=== PATIENT | male | born 1970 | race Caucasian/White ===

== ENCOUNTER 2016-10-12 12:29 | Emergency (ER) | payer OTHER ==
[2016-10-12 12:34] VITALS: BP 128/82
[2016-10-12] MEDS ORDERED: Methocarbamol TAB* 500 MG PO ONE (13:20)
[2016-10-12] MEDS ORDERED: Ketorolac INJ* 60 MG/2 ML VIAL IM ONE (13:20)
[2016-10-12] MEDS ORDERED: oxyCODONE/Acetamin 5/325 MG* TAB PO ONE (13:21)
--- NOTE | 2016-10-12 13:29 | ED ---
Back Pain - HPI Summary HPI Summary: 45M presents with back pain for 2 days that is acute on chronic. States nothing different about this back pain except for that is reoccurred. His back pain is not midline is located on his right side and the pain goes into his leg. He denies any numbness or tingling or weakness. He has had imaging for his back in the past and has shown to have a herniated disk. He denies any fever, loss of bowel or bladder or saddle anaesthesia. - History of Current Complaint Chief Complaint: EDBackInjuryPain Stated Complaint: BACK PAIN Time Seen by Provider: 10/12/16 12:53 Pain Intensity: 8 - Allergies/Home Medications Allergies/Adverse Reactions: Allergies Allergy/AdvReac Type Severity Reaction Status Date / Time No Known Allergies Allergy Verified 05/25/16 08:27 PMH/Surg Hx/FS Hx/Imm Hx Endocrine/Hematology History: Denies: Hx Anticoagulant Therapy Respiratory History: Reports: Hx Asthma - YRS AGO Musculoskeletal History: Reports: Hx Back Problems Sensory History: Reports: Hx Contacts or Glasses Opthamlomology History: Reports: Hx Contacts or Glasses - Immunization History Date of Tetanus Vaccine: unknown Date of Influenza Vaccine: no Infectious Disease History: No Infectious Disease History: Denies: Traveled Outside the [place] in Last 30 Days - Family History Known Family History: Positive: Cardiac Disease - Social History Alcohol Use: Occasionally Hx Substance Use: No Substance Use Type: Reports: None Smoking Status (MU): Heavy Every Day Tobacco Smoker Type: Cigarettes Amount Used/How Often: 1 pack/day Length of Time of Smoking/Using Tobacco: 30 years Have You Smoked in the Last Year: Yes Review of Systems Negative: Fever Negative: Chest Pain Negative: Shortness Of Breath Positive: Myalgia - back pain All Other Systems Reviewed And Are Negative: Yes Physical Exam Triage Information Reviewed: Yes Vital Signs On Initial Exam: Initial Vitals Temp Pulse Resp BP Pulse Ox 98.1 F 85 20 128/82 99 10/12/16 12:31 10/12/16 12:31 10/12/16 12:31 10/12/16 12:31 10/12/16 12:31 Vital Signs Reviewed: Yes Appearance: Positive: Well-Appearing Skin: Positive: Warm, Dry Head/Face: Positive: Normal Head/Face Inspection Eyes: Positive: Normal, Conjunctiva Clear ENT: Positive: Normal ENT inspection, Pharynx normal, TMs normal Respiratory/Lung Sounds: Positive: Clear to Auscultation, Breath Sounds Present Cardiovascular: Positive: Normal, RRR Musculoskeletal: Positive: Limited @ - back due to pain, Other - neg SLR, no midline tenderness, tenderness over right side of back Neurological: Positive: Reflexes Intact - patella Diagnostics - Vital Signs Vital Signs Temp Pulse Resp BP Pulse Ox 10/12/16 12:31 98.1 F 85 20 128/82 99 - Laboratory Lab Statement: Any lab studies that have been ordered have been reviewed, and results considered in the medical decision making process. Back Pain Course/Dx - Course Course Of Treatment: 45M presents with acute on chronic back pain on right side. no numbness or tingling. no midline tenderness on exam, neg SLR, will treat with medrol pack and muscle relaxer. patient understands and agrees with plan - Diagnoses Differential Diagnosis/HQI/PQRI: Positive: Herniated Disc, Strain, Sprain Provider Diagnoses: Back pain Discharge - Discharge Plan Condition: Good Disposition: HOME Prescriptions: Cyclobenzaprine TAB* [Flexeril TAB*] 10 mg PO TID PRN #8 tab PRN Reason: Pain Methylprednisolone [Medrol Dosepak 4 MG*] 4 mg PO .SEE BEAR INSTRUCTION #1 packet Patient Education Materials: Back Pain (ED) Forms: *Work Release Referrals: Kiley Bermudez MD [Primary Care Provider] - Additional Instructions: Follow directions on package for Medrol pack Take muscle relaxers three times a day for 3 days, first dose given in ED Use ibuprofen or Tylenol for pain every 6 hours Follow up with primary within 5 days Return to ED if unable to ambulate or develop any new or worsening symptoms
== END 2016-10-12 14:19 | disposition home or self-care (01) ==
LOC: ED 12:29
DX: M54.9 Dorsalgia, unspecified (principal); F17.210 Nicotine dependence, cigarettes, uncomplicated
CPT/HCPCS: 96372; 99282; A9270-GY; J1885

== ENCOUNTER 2016-11-27 16:23 | Emergency (ER) | payer OTHER ==
[2016-11-27] MEDS ORDERED: NS 0.9% 1000 ML* 1,000 ML IV ONE (16:46)
[2016-11-27 17:08] LABS: Hematocrit 41 % (42-52); Hemoglobin 14.2 g/dl (14.0-18.0); Mean Corpuscular HGB Conc 34 g/dl (31-36); Mean Corpuscular Hemoglobin 32 pg (27-31); Mean Corpuscular Volume 92 fL (80-94); Mean Platelet Volume 9 um3 (7.4-10.4); Red Cell Distribution Width 13 % (10.5-15); White Blood Count 8.5 10^3/ul (3.5-10.8)
[2016-11-27 17:22] LABS: BUN/Creatinine Ratio 9.2 (8-20); Calcium 8.7 mg/dL (8.6-10.3); EGFR African American 141.4 (>60); EGFR Non-African American 109.9 (>60); Globulin 2.6 g/dL (2-4); Potassium 3.5 mmol/L (3.5-5.0); Total Bilirubin 0.5 mg/dL (0.2-1.0); Total Protein 6.6 g/dL (6.4-8.9)
--- NOTE | 2016-11-27 17:35 | RAD ---
Indication: Fall, head injury. CT of the brain was performed without IV contrast. Comparison is made with previous exam dated October 22, 2015. Ventricular structures are midline. No midline shift is noted. The extra-axial spaces are unremarkable. There is no evidence of intracranial mass or hemorrhage. No other high or low density lesions are identified. The bony calvaria is otherwise unremarkable. Mastoid air cells are unremarkable. Fluid is loculated air is noted in the oral pharynx. IMPRESSION: No intracranial mass or hemorrhage is identified.
--- NOTE | 2016-11-27 17:37 | RAD ---
Indication: Neck injury after fall. CT of the cervical spine was obtained in the axial plane. Sagittal and coronal reconstructed images were obtained. Mastoid air cells are well aerated. No fracture is noted. The C1 ring is intact. No fracture is identified. The vertebral bodies appear normal in height. Degenerative changes of the atlantoaxial joint is noted. At C2-C3 and C3-C4 there is no disc protrusion. No central foraminal stenosis is noted. At C4-C5 spondylitic ridge flattens the thecal sac. No central foraminal stenosis is noted. At C5-C6 no fractures identified. Minimal broad-based protrusion flattens the thecal sac. No central foraminal stenosis is noted. At C6-C7 spondylitic ridge, left uncovertebral joint hypertrophy left facet arthropathy results in left foraminal stenosis. At C7-T1 disc space is normal. No fractures identified. Emphysematous changes of the lung corona are noted. Large emphysematous bullae is noted in the right apex. IMPRESSION: MULTILEVEL DEGENERATIVE DISC DISEASE AT C5-C6 AND C6-C7. NO FRACTURE IS IDENTIFIED.
--- NOTE | 2016-11-27 17:43 | RAD ---
Indication: Fall, facial injury. CT of the facial bones was obtained in the axial plane. Sagittal and coronal reconstructed images were obtained. There appears to be comminuted fracture of the right NaSal arch and left nasal arch. No significant displacement is noted however. There is likely hemorrhage with flocculent fluid noted in the nasopharynx. There is mucosal thickening of the maxillary sinuses with obstruction of the ostiomeatal units. Mucosal thickening of the middle and inferior nasal turbinates are noted. There is opacification of the ethmoid air cells. The sphenoid sinuses are unremarkable. The frontal sinuses are otherwise unremarkable. The orbits are otherwise intact. The mandible demonstrates no fracture. Zygomatic arch demonstrates no fracture. The orbits show no fracture. IMPRESSION: Comminuted fracture of both the left and right nasal arch. There is mucosal thickening and fluid in the nasopharynx with flocculent amount of air. Maxillary sinuses are otherwise unremarkable.
[2016-11-27 18:05] LABS: Urine Bacteria Absent (Absent); Urine Bilirubin Negative (Negative); Urine Glucose Negative (Negative); Urine Nitrite Negative (Negative)
[2016-11-27] MEDS ORDERED: Cephalexin SUSP* 250 MG/5 ML ORAL.SUSP 100 ML BTL PO ONE (18:32)
--- NOTE | 2016-11-27 18:55 | RAD ---
Indication: Back pain. 2 views of the lumbar spine are reviewed. The vertebral bodies appear normal in height. Disc space narrowing at L3-L4 with mild ventral osteophyte formation is noted. No fracture is noted. IMPRESSION: Mild degenerative disc disease at L3-L4.
--- NOTE | 2016-11-27 18:55 | RAD ---
Indication: Back pain. 2 views of the thoracic spine are reviewed. The vertebral bodies appear normal in height. No fracture is noted. Minimal areas of disc space narrowing with mild osteophyte formation is noted at multiple levels. IMPRESSION: Mild degenerative disc disease without fracture.
[2016-11-27] MEDS ORDERED: Cephalexin CAP* 250 MG ONE (19:18)
[2016-11-27] MEDS ORDERED: Cephalexin CAP* 250 MG PO ONE (19:20)
[2016-11-28 08:23] VITALS: BP 107/75
--- NOTE | 2016-11-28 08:50 | ED ---
Karl Higginbotham Matthew, scribed for Mario Pradhan MD on 11/27/16 at 1644 . Adult Trauma - HPI Summary HPI Summary: A 46 y/o male presents to the ED after falling from a standing position. The pain is rated 8/10 in severity. He states that he tripped while walking onto the side walk. Associated symptoms include lower back pain, cervical spine pain , epistaxis, and an abrasion to the nose. An empty vodka bottle was found beside the patient according to EMS. - History of Current Complaint Chief Complaint: EDGeneral Stated Complaint: FALL/ETOH Time Seen by Provider: 11/27/16 16:42 Hx Obtained From: Patient Mechanism of Injury: Fall - from standing Ambulatory at the Scene: Yes Onset/Duration: Started Minutes Ago, Traumatic, Still Present Onset of Pain: Immediate Onset Severity: Moderate Current Severity: Moderate Pain Intensity: 8 Pain Scale Used: 0-10 Numeric Location: Head, Neck, Back Aggravating Factor(s): Movement Associated Signs & Symptoms: Positive: Other: - neck pain, back pain, abrasion to the nose, and epistaxis - Allergy/Home Medications Allergies/Adverse Reactions: Allergies Allergy/AdvReac Type Severity Reaction Status Date / Time No Known Allergies Allergy Verified 05/25/16 08:27 PMH/Surg Hx/FS Hx/Imm Hx Endocrine/Hematology History: Denies: Hx Anticoagulant Therapy Respiratory History: Reports: Hx Asthma - YRS AGO Musculoskeletal History: Reports: Hx Back Problems Sensory History: Reports: Hx Contacts or Glasses Opthamlomology History: Reports: Hx Contacts or Glasses - Immunization History Date of Tetanus Vaccine: unknown Date of Influenza Vaccine: no Infectious Disease History: Denies: Traveled Outside the [place] in Last 30 Days - Family History Known Family History: Positive: Cardiac Disease - Social History Alcohol Use: Occasionally Hx Substance Use: No Substance Use Type: Reports: None Smoking Status (MU): Heavy Every Day Tobacco Smoker Type: Cigarettes Amount Used/How Often: 1 pack/day Length of Time of Smoking/Using Tobacco: 30 years Have You Smoked in the Last Year: Yes Review of Systems Constitutional: Negative Eyes: Negative Positive: Epistaxis Cardiovascular: Negative Respiratory: Negative Gastrointestinal: Negative Genitourinary: Negative Positive: Myalgia - lower back pain, neck pain Skin: Other - abrasion to the nose Neurological: Negative Psychological: Normal All Other Systems Reviewed And Are Negative: Yes Physical Exam - Summary Physical Exam Summary: VITAL SIGNS: Reviewed. GENERAL: Patient is a thin male arrived via ambulance boarded and collared who is lying comfortable in the stretcher. Patient is not in any acute respiratory distress. HEAD AND FACE: No signs of trauma. No ecchymosis, hematomas or skull depressions. No sinus tenderness. EYES: PERRLA, EOMI x 2, No injected conjunctiva, no nystagmus. EARS: Hearing grossly intact. Ear canals and tympanic membranes are within normal limits. No Hemotympanum. MOUTH: Oropharynx within normal limits. NECK: Supple, trachea is midline, no adenopathy, no JVD, no carotid bruit, no c- spine tenderness, neck with full ROM. However. I left the collar in place since patient is intoxicated. CHEST: Symmetric, no tenderness at palpation LUNGS: Clear to auscultation bilaterally. No wheezing or crackles. CVS: Regular rate and rhythm, S1 and S2 present, no murmurs or gallops appreciated. ABDOMEN: Soft, non-tender. No signs of distention. No rebound no guarding, and no masses palpated. Bowel sounds are normal. EXTREMITIES: FROM in all major joints, no edema, no cyanosis or clubbing. NEURO: Alert and oriented x 3. No acute neurological deficits. Speech is normal and follows commands. SKIN: Dry and warm. small laceration in the nasal bridge. Triage Information Reviewed: Yes Vital Signs On Initial Exam: Initial Vitals Temp Pulse Resp BP Pulse Ox 98.9 F 95 20 102/64 95 11/27/16 16:32 11/27/16 16:32 11/27/16 16:32 11/27/16 16:32 11/27/16 16:32 Vital Signs Reviewed: Yes Procedures - Laceration/Wound Repair 3 Location: face Description: Linear Anesthesia: 1.0% Length, Depth and Shape: .5cm, superfacial, linear Betadine Prep?: Yes Irrigated w/ Saline (ccs): 100 Laceration/Wound Explored: clean Closure: Single Layer Suture Type: Nylon - 4.0 Number of Sutures: 3 Layer Closure?: No Sterile Dressing Applied?: Yes Diagnostics - Vital Signs Vital Signs Temp Pulse Resp BP Pulse Ox 11/27/16 16:32 98.9 F 95 20 102/64 95 - Laboratory Lab Results: Lab Results 11/27/16 11/27/16 11/27/16 Range/Units 17:00 17:00 17:00 WBC 8.5 (3.5-10.8) 10^3/ul RBC 4.50 (4.0-5.4) 10^6/ul Hgb 14.2 (14.0-18.0) g/dl Hct 41 L (42-52) % MCV 92 (80-94) fL MCH 32 H (27-31) pg MCHC 34 (31-36) g/dl RDW 13 (10.5-15) % Plt Count 200 (150-450) 10^3/ul MPV 9 (7.4-10.4) um3 Neut % (Auto) 59.4 (38-83) % Lymph % (Auto) 31.9 (25-47) % Sheridan % (Auto) 7.0 (1-9) % Eos % (Auto) 0.9 (0-6) % Baso % (Auto) 0.8 (0-2) % Absolute Neuts (auto) 5.0 (1.5-7.7) 10^3/ul Absolute Lymphs (auto) 2.7 (1.0-4.8) 10^3/ul Absolute Monos (auto) 0.6 (0-0.8) 10^3/ul Absolute Eos (auto) 0.1 (0-0.6) 10^3/ul Absolute Basos (auto) 0.1 (0-0.2) 10^3/ul Absolute Nucleated RBC 0.01 10^3/ul Nucleated RBC % 0.2 Sodium 129 L (133-145) mmol/L Potassium 3.5 (3.5-5.0) mmol/L Chloride 98 L (101-111) mmol/L Carbon Dioxide 20 L (22-32) mmol/L Anion Gap 11 (2-11) mmol/L BUN 7 (6-24) mg/dL Creatinine 0.76 (0.67-1.17) mg/dL Est GFR ( Amer) 141.4 (>60) Est GFR (Non-Af Amer) 109.9 (>60) BUN/Creatinine Ratio 9.2 (8-20) Glucose 77 (70-100) mg/dL Lactic Acid 2.8 H* (0.5-2.0) mmol/L Calcium 8.7 (8.6-10.3) mg/dL Total Bilirubin 0.50 (0.2-1.0) mg/dL AST 18 (13-39) U/L ALT 10 (7-52) U/L Alkaline Phosphatase 59 (34-104) U/L Total Creatine Kinase 164 (10-223) U/L Total Protein 6.6 (6.4-8.9) g/dL Albumin 4.0 (3.2-5.2) g/dL Globulin 2.6 (2-4) g/dL Albumin/Globulin Ratio 1.5 (1-3) Amylase 36 (29-103) U/L Urine Color Urine Appearance Urine pH (5-9) Ur Specific Hope (1.010-1.030) Urine Protein (Negative) Urine Ketones (Negative) Urine Blood (Negative) Urine Nitrate (Negative) Urine Bilirubin (Negative) Urine Urobilinogen (Negative) Ur Leukocyte Esterase (Negative) Urine WBC (Auto) (Absent) Urine RBC (Auto) (Absent) Urine Bacteria (Absent) Urine Glucose (Negative) Serum Alcohol 357 H (<10) mg/dL 11/27/16 Range/Units 17:40 WBC (3.5-10.8) 10^3/ul RBC (4.0-5.4) 10^6/ul Hgb (14.0-18.0) g/dl Hct (42-52) % MCV (80-94) fL MCH (27-31) pg MCHC (31-36) g/dl RDW (10.5-15) % Plt Count (150-450) 10^3/ul MPV (7.4-10.4) um3 Neut % (Auto) (38-83) % Lymph % (Auto) (25-47) % Sheridan % (Auto) (1-9) % Eos % (Auto) (0-6) % Baso % (Auto) (0-2) % Absolute Neuts (auto) (1.5-7.7) 10^3/ul Absolute Lymphs (auto) (1.0-4.8) 10^3/ul Absolute Monos (auto) (0-0.8) 10^3/ul Absolute Eos (auto) (0-0.6) 10^3/ul Absolute Basos (auto) (0-0.2) 10^3/ul Absolute Nucleated RBC 10^3/ul Nucleated RBC % Sodium (133-145) mmol/L Potassium (3.5-5.0) mmol/L Chloride (101-111) mmol/L Carbon Dioxide (22-32) mmol/L Anion Gap (2-11) mmol/L BUN (6-24) mg/dL Creatinine (0.67-1.17) mg/dL Est GFR ( Amer) (>60) Est GFR (Non-Af Amer) (>60) BUN/Creatinine Ratio (8-20) Glucose (70-100) mg/dL Lactic Acid (0.5-2.0) mmol/L Calcium (8.6-10.3) mg/dL Total Bilirubin (0.2-1.0) mg/dL AST (13-39) U/L ALT (7-52) U/L Alkaline Phosphatase (34-104) U/L Total Creatine Kinase (10-223) U/L Total Protein (6.4-8.9) g/dL Albumin (3.2-5.2) g/dL Globulin (2-4) g/dL Albumin/Globulin Ratio (1-3) Amylase (29-103) U/L Urine Color Straw Urine Appearance Clear Urine pH 5.0 (5-9) Ur Specific Hope 1.003 L (1.010-1.030) Urine Protein Negative (Negative) Urine Ketones Negative (Negative) Urine Blood 1+ H (Negative) Urine Nitrate Negative (Negative) Urine Bilirubin Negative (Negative) Urine Urobilinogen Negative (Negative) Ur Leukocyte Esterase Negative (Negative) Urine WBC (Auto) Trace(0-5/hpf) (Absent) Urine RBC (Auto) Trace(0-2/hpf) (Absent) Urine Bacteria Absent (Absent) Urine Glucose Negative (Negative) Serum Alcohol (<10) mg/dL Result Diagrams: 11/27/16 17:00 11/27/16 17:00 Lab Statement: Any lab studies that have been ordered have been reviewed, and results considered in the medical decision making process. - CT Brain CT CT Interpretation: No Acute Changes - IMPRESSION: No intracranial mass or hemorrhage is identified. CT Interpretation Completed By: Radiologist C-Spine CT CT Interpretation: No Acute Changes - IMPRESSION: MULTILEVEL DEGENERATIVE DISC DISEASE AT C5-C6 AND C6-C7. NO FRACTURE IS IDENTIFIED. CT Interpretation Completed By: Radiologist Maxillofacial CT CT Interpretation: Positive (See Comments) - IMPRESSION: Comminuted fracture of both the left and right nasal arch. There is mucosal thickening and fluid in the nasopharynx with flocculent amount of air. Maxillary sinuses are otherwise unremarkable. CT Interpretation Completed By: Radiologist L-Spine CT CT Interpretation: No Acute Changes - IMPRESSION: Mild degenerative disc disease at L3-L4. CT Interpretation Completed By: Radiologist T-Spine CT CT Interpretation: No Acute Changes - IMPRESSION: Mild degenerative disc disease without fracture. CT Interpretation Completed By: Radiologist - EKG 17:33 Cardiac Rate: NL - 82 bpm EKG Rhythm: Sinus Rhythm EKG Interpretation: No ST elevation Adult Trauma Course/Dx - Course Assessment/Plan: A 46 y/o male presents to the ED after falling from a standing position. The pain is rated 8/10 in severity. He states that he tripped while walking onto the side walk. Associated symptoms include lower back pain, cervical spine pain, epistaxis, and an abrasion to the nose. An empty vodka bottle was found beside the patient according to EMS. Test result WNL except Hct of 41, sodium 129, chloride 98, CO2 20, lactic acid 2.8. Urinalysis is normal. Serum alcohol 357. C-Spine CT shows multilevel degenerative disc disease at c5-c6 and c6-c7. no fracture is identified. Brain CT shows No intracranial mass or hemorrhage is identified. Maxillofacial CT Comminuted fracture of both the left and right nasal arch. There is mucosal thickening and fluid in the nasopharynx with flocculent amount of air. Maxillary sinuses are otherwise unremarkable. L-Spine CT shows Mild degenerative disc disease at L3- L4. T-Spine CT shows Mild degenerative disc disease without fracture. In the ED course, the patient was given IV fluids, Keflex since the patient has a nasal fracture. The patient is still awaiting t-spine and l-spine. He is hemodynamically stable and A&Ox3. He is resting comfortably and given a banana bag and IV fluids. At this point, the patient will be signed out to Dr. Nixon until the patient becomes sober with good steady walk and the test results have the T-spine and L-spine have returned. - Diagnoses Differential Diagnosis/HQI/PQRI: Positive: Abrasion(s), Contusion(s), Fracture, Dislocation, Hematoma(s), Laceration(s), Sprain, Strain Provider Diagnoses: Scalp contusion, Alcohol intoxication, Facial contusion, Laceration Discharge - Discharge Plan Condition: Stable Disposition: HOME Discharge Disposition Comment: The patient is signed out to Dr. Nixon pending Sobriety Patient Education Materials: Alcohol Intoxication (ED), Scalp Contusion in Adults (ED), Facial Contusion (ED), Facial Laceration (ED) Referrals: Kiley Bermudez MD [Primary Care Provider] - 3 Days Additional Instructions: Please follow-up with your primary care physician. The documentation as recorded by the Karl landers Matthew accurately reflects the service I personally performed and the decisions made by , Mario Pradhan MD.
--- NOTE | 2016-11-28 08:50 | ED ---
Nikia Higginbotham Janilya, scribed for Mario Pradhan MD on 11/28/16 at 0818 . Progress - Progress Note Progress Note: Pt was signed out from Dr. Nixon at shift change. Pt was observed in the ER for EtOH intoxication. This morning, pt is alert and oriented, ambulating w/o difficulty, demonstrating normal cognition, sober, and drinking/eating normally. Therefore, pt will be discharged home w/ PCP follow up in 7-10 days for suture removal. Course/Dx - Diagnoses Provider Diagnoses: Scalp contusion, Alcohol intoxication, Facial contusion, Laceration Discharge - Discharge Plan Condition: Stable Disposition: HOME Patient Education Materials: Alcohol Intoxication (ED), Scalp Contusion in Adults (ED), Facial Contusion (ED), Facial Laceration (ED) Referrals: Kiley Bermudez MD [Primary Care Provider] - 3 Days Additional Instructions: Please follow-up with your primary care physician. The documentation as recorded by the Nikia landers Janilya accurately reflects the service I personally performed and the decisions made by Lorne cole Walter, MD.
== END 2016-11-28 08:30 | disposition home or self-care (01) ==
LOC: ED 16:23
DX: S00.03XA Contusion of scalp, initial encounter (principal); S00.31XA Abrasion of nose, initial encounter; R04.0 Epistaxis; W19.XXXA Unspecified fall, initial encounter; Y93.9 Activity, unspecified; Y92.9 Unspecified place or not applicable; M54.2 Cervicalgia; F17.210 Nicotine dependence, cigarettes, uncomplicated
CPT/HCPCS: 12001; 36415; 70450; 70486; 72070; 72100; 72125; 80053; 80320; 81003; 81015; 82150; 82550; 83605; 85025; 93005; 99284; A9270-GY; G0480

== ENCOUNTER 2017-04-04 19:40 | Emergency (ER) | payer SELFPAY ==
[2017-04-04] MEDS ORDERED: Aspirin Low Dose CHEW TAB* 81 MG PO ONE (20:02)
[2017-04-04 20:21] LABS: Hematocrit 39 % (42-52); Hemoglobin 12.9 g/dl (14.0-18.0); Mean Corpuscular HGB Conc 34 g/dl (31-36); Mean Corpuscular Hemoglobin 32 pg (27-31); Mean Corpuscular Volume 95 fL (80-94); Mean Platelet Volume 8 um3 (7.4-10.4); Red Blood Count 4.09 10^6/ul (4.0-5.4); Red Cell Distribution Width 14 % (10.5-15); White Blood Count 7.1 10^3/ul (3.5-10.8)
--- NOTE | 2017-04-04 20:44 | RAD ---
INDICATION: Chest pain COMPARISON: May 26, 2016 TECHNIQUE: PA and lateral dual-energy views were obtained. FINDINGS: Bones/Soft Tissues: There are no acute bony findings. Cardiomediastinal: The cardiomediastinal silhouette is normal. Lungs: There is hyperinflation and apical bullous changes right greater than left. Pleura: There are no pleural effusions. Other: None IMPRESSION: EMPHYSEMATOUS CHANGES WITH APICAL BULLA
[2017-04-04 20:54] LABS: Albumin 4.1 g/dL (3.2-5.2); BUN/Creatinine Ratio 8.4 (8-20); Calcium 8.9 mg/dL (8.6-10.3); EGFR African American 127.7 (>60); EGFR Non-African American 99.3 (>60); Globulin 2.2 g/dL (2-4); Potassium 3.4 mmol/L (3.5-5.0); Total Bilirubin 0.3 mg/dL (0.2-1.0); Total Protein 6.3 g/dL (6.4-8.9)
[2017-04-04] MEDS ORDERED: Ketorolac INJ* 30 MG/ML 1 ML VIAL IV ONE (21:01)
--- NOTE | 2017-04-04 21:53 | ED ---
David Higginbotham Alfonso, scribed for Gustavo Conn MD on 04/04/17 at 1949 . HPI Chest Pain - HPI Summary HPI Summary: This patient is a 41 year old M BIBA to [facility] with a chief complaint of left sided chest pain since about 2 hours ago. Patient was feeding ducks and smoking a cigarette during onset. The CC is described as a sudden onset of sharp pain with radiation to left arm. The patient rates the pain 8/10 in severity. Symptoms aggravated by inspiration and alleviated by 324ASA and NTG. Patient reports SOB and fever. Patient denies worsening of pain with palpation, swelling , and pain from raising left arm. PMHx of pneumothorax and herniated disk. Tobacco use disorder (1 PPD for 30 years). - History of Current Complaint Chief Complaint: EDChestPainROMI Time Seen by Provider: 04/04/17 19:44 Hx Obtained From: Patient, EMS Onset/Duration: Started Hours Ago - 2 hours ago Current Severity: Severe - 8/10 Pain Intensity: 8 Pain Scale Used: 0-10 Numeric Chest Pain Location: Discrete at: - left-sided Chest Pain Radiates: Yes Chest Pain Radiates To:: Arm - Left arm Character: Sharp/Stabbing Aggravating Factor(s): Other: - Inspiration Alleviating Factor(s): Medication - 324ASA and nitro via EMS Associated Signs and Symptoms: Positive: Other: - Patient reports SOB and fever. Patient denies worsening of pain with palpation, swelling, and pain from raising left arm. - Allergy/Home Medications Allergies/Adverse Reactions: Allergies Allergy/AdvReac Type Severity Reaction Status Date / Time No Known Allergies Allergy Verified 05/25/16 08:27 PMH/Surg Hx/FS Hx/Imm Hx Endocrine/Hematology History: Denies: Hx Anticoagulant Therapy Respiratory History: Reports: Hx Asthma - YRS AGO Musculoskeletal History: Reports: Hx Back Problems Sensory History: Reports: Hx Contacts or Glasses Opthamlomology History: Reports: Hx Contacts or Glasses - Immunization History Date of Tetanus Vaccine: unknown Date of Influenza Vaccine: no - Family History Known Family History: Positive: Cardiac Disease - Social History Alcohol Use: Occasionally Hx Substance Use: No Substance Use Type: Reports: None Smoking Status (MU): Heavy Every Day Tobacco Smoker Type: Cigarettes Amount Used/How Often: 1 pack/day Length of Time of Smoking/Using Tobacco: 30 years Have You Smoked in the Last Year: Yes Review of Systems Positive: Fever Positive: Chest Pain - L chest radiating to L arm Positive: Shortness Of Breath Positive: Other - NEGATIVE: swelling, pain from raising left arm All Other Systems Reviewed And Are Negative: Yes Physical Exam Triage Information Reviewed: Yes Vital Signs On Initial Exam: Initial Vitals Temp Pulse Resp BP Pulse Ox 98.6 F 89 16 105/73 97 04/04/17 19:42 04/04/17 19:42 04/04/17 19:42 04/04/17 19:42 04/04/17 19:42 Vital Signs Reviewed: Yes Appearance: Positive: Well-Appearing, No Pain Distress Skin: Positive: Warm, Skin Color Reflects Adequate Perfusion, Dry Head/Face: Positive: Normal Head/Face Inspection Eyes: Positive: Normal ENT: Positive: Normal ENT inspection Neck: Positive: Supple, Nontender Respiratory/Lung Sounds: Positive: Other - Lungs sound reduced in all corona Cardiovascular: Positive: RRR Abdomen Description: Positive: Nontender, Soft Bowel Sounds: Positive: Present Musculoskeletal: Positive: Normal Neurological: Positive: Normal, Sensory/Motor Intact, Alert, Oriented to Person Place, Time, CN Intact II-III Psychiatric: Positive: Affect/Mood Appropriate Diagnostics - Vital Signs Vital Signs Temp Pulse Resp BP Pulse Ox 04/04/17 20:00 87 18 96 04/04/17 19:53 20 04/04/17 19:42 98.6 F 89 16 105/73 97 - Laboratory Lab Results: Lab Results 04/04/17 04/04/17 04/04/17 Range/Units 20:06 20:06 20:06 WBC 7.1 (3.5-10.8) 10^3/ul RBC 4.09 (4.0-5.4) 10^6/ul Hgb 12.9 L (14.0-18.0) g/dl Hct 39 L (42-52) % MCV 95 H (80-94) fL MCH 32 H (27-31) pg MCHC 34 (31-36) g/dl RDW 14 (10.5-15) % Plt Count 223 (150-450) 10^3/ul MPV 8 (7.4-10.4) um3 Neut % (Auto) 51.7 (38-83) % Lymph % (Auto) 37.4 (25-47) % Green % (Auto) 7.7 (1-9) % Eos % (Auto) 1.2 (0-6) % Baso % (Auto) 2.0 (0-2) % Absolute Neuts (auto) 3.7 (1.5-7.7) 10^3/ul Absolute Lymphs (auto) 2.7 (1.0-4.8) 10^3/ul Absolute Monos (auto) 0.5 (0-0.8) 10^3/ul Absolute Eos (auto) 0.1 (0-0.6) 10^3/ul Absolute Basos (auto) 0.1 (0-0.2) 10^3/ul Absolute Nucleated RBC 0 10^3/ul Nucleated RBC % 0 D-Dimer, Quantitative < 200 (Less Than 230) ng/mL Sodium 134 (133-145) mmol/L Potassium 3.4 L (3.5-5.0) mmol/L Chloride 102 (101-111) mmol/L Carbon Dioxide 24 (22-32) mmol/L Anion Gap 8 (2-11) mmol/L BUN 7 (6-24) mg/dL Creatinine 0.83 (0.67-1.17) mg/dL Est GFR ( Amer) 127.7 (>60) Est GFR (Non-Af Amer) 99.3 (>60) BUN/Creatinine Ratio 8.4 (8-20) Glucose 106 H (70-100) mg/dL Lactic Acid (0.5-2.0) mmol/L Calcium 8.9 (8.6-10.3) mg/dL Total Bilirubin 0.30 (0.2-1.0) mg/dL AST 22 (13-39) U/L ALT 12 (7-52) U/L Alkaline Phosphatase 55 (34-104) U/L Troponin I 0.00 (<0.04) ng/mL Total Protein 6.3 L (6.4-8.9) g/dL Albumin 4.1 (3.2-5.2) g/dL Globulin 2.2 (2-4) g/dL Albumin/Globulin Ratio 1.9 (1-3) 04/04/17 Range/Units 20:06 WBC (3.5-10.8) 10^3/ul RBC (4.0-5.4) 10^6/ul Hgb (14.0-18.0) g/dl Hct (42-52) % MCV (80-94) fL MCH (27-31) pg MCHC (31-36) g/dl RDW (10.5-15) % Plt Count (150-450) 10^3/ul MPV (7.4-10.4) um3 Neut % (Auto) (38-83) % Lymph % (Auto) (25-47) % Green % (Auto) (1-9) % Eos % (Auto) (0-6) % Baso % (Auto) (0-2) % Absolute Neuts (auto) (1.5-7.7) 10^3/ul Absolute Lymphs (auto) (1.0-4.8) 10^3/ul Absolute Monos (auto) (0-0.8) 10^3/ul Absolute Eos (auto) (0-0.6) 10^3/ul Absolute Basos (auto) (0-0.2) 10^3/ul Absolute Nucleated RBC 10^3/ul Nucleated RBC % D-Dimer, Quantitative (Less Than 230) ng/mL Sodium (133-145) mmol/L Potassium (3.5-5.0) mmol/L Chloride (101-111) mmol/L Carbon Dioxide (22-32) mmol/L Anion Gap (2-11) mmol/L BUN (6-24) mg/dL Creatinine (0.67-1.17) mg/dL Est GFR ( Amer) (>60) Est GFR (Non-Af Amer) (>60) BUN/Creatinine Ratio (8-20) Glucose (70-100) mg/dL Lactic Acid 1.9 (0.5-2.0) mmol/L Calcium (8.6-10.3) mg/dL Total Bilirubin (0.2-1.0) mg/dL AST (13-39) U/L ALT (7-52) U/L Alkaline Phosphatase (34-104) U/L Troponin I (<0.04) ng/mL Total Protein (6.4-8.9) g/dL Albumin (3.2-5.2) g/dL Globulin (2-4) g/dL Albumin/Globulin Ratio (1-3) Result Diagrams: 04/04/17 20:06 04/04/17 20:06 Lab Statement: Any lab studies that have been ordered have been reviewed, and results considered in the medical decision making process. - Radiology CXR Radiology Interpretation Completed By: Radiologist - EMPHYSEMATOUS CHANGES WITH APICAL BULLA - EKG 1955 Cardiac Rate: NL EKG Rhythm: Sinus Rhythm ST Segment: Normal EKG Interpretation: NAC Chest Pain Course/Dx - Course Course Of Treatment: Mr. Sahni presented with an atypical chest pain. His initial W/U is negative and he is awaiting a second/delayed troponin. His EDACS score is 6 and I expect that he will go home after his repeat trop. - Diagnoses Provider Diagnoses: Chest pain Discharge - Discharge Plan Condition: Stable Disposition: OTHER Discharge Disposition Comment: Patient is signed out to Dr. Oates, pending disposition, awaiting Trop Patient Education Materials: Chest Pain (ED) Referrals: Kiley Bermudez MD [Primary Care Provider] - 3 Days The documentation as recorded by the David landers Alfonso accurately reflects the service I personally performed and the decisions made by me, Gustavo Conn MD.
[2017-04-05 00:28] VITALS: BP 105/79
--- NOTE | 2017-04-05 05:28 | ED ---
Armen Higginbotham Rebecca, scribed for Yasir Oates MD on 04/04/17 at 2349 . Progress - Progress Note Progress Note: Pt was signed out from Dr. oCnn at 1900, pending dispo, awaiting repeat troponin. Repeat troponin drawn at 2300 is 0.00, unchanged from prior troponin. Pt is stable and will be D/C to home with Dx of chest pain with discharge instructions already written. Course/Dx - Diagnoses Provider Diagnoses: Chest pain The documentation as recorded by the stasibArmen hutton Rebecca accurately reflects the service I personally performed and the decisions made by Lashon coel Drew, MD.
== END 2017-04-05 00:29 ==
LOC: ED 19:40
DX: R07.89 Other chest pain (principal); J44.9 Chronic obstructive pulmonary disease, unspecified; R06.02 Shortness of breath; R50.9 Fever, unspecified; F17.210 Nicotine dependence, cigarettes, uncomplicated
CPT/HCPCS: 36415; 71020; 80053; 83605; 84484; 85025; 85379; 93005; 96374; 99283; J1885

== ENCOUNTER 2017-10-09 18:29 | Emergency (ER) | payer SELFPAY ==
[2017-10-09 19:58] LABS: ABS Basophils 0.1 10^3/ul (0-0.2); ABS Eosinophils 0.1 10^3/ul (0-0.6); ABS Lymphocytes 2.8 10^3/ul (1.0-4.8); ABS Monocytes 0.5 10^3/ul (0-0.8); ABS Neutrophils 2.9 10^3/ul (1.5-7.7); ABS Nucleated RBC 0 10^3/ul; Eosinophil % 1.5 % (0-6); Hematocrit 41 % (42-52); Hemoglobin 13.9 g/dl (14.0-18.0); Lymphocyte % 44.6 % (25-47); Mean Corpuscular HGB Conc 34 g/dl (31-36); Mean Corpuscular Hemoglobin 33 pg (27-31); Mean Corpuscular Volume 96 fL (80-94); Mean Platelet Volume 8 um3 (7.4-10.4); Nucleated Red Blood Cells % 0.1; Platelet Count 169 10^3/ul (150-450); Red Blood Count 4.25 10^6/ul (4.0-5.4); Red Cell Distribution Width 13 % (10.5-15); White Blood Count 6.2 10^3/ul (3.5-10.8)
[2017-10-09 20:09] LABS: EGFR Non-African American 109.9 (>60)
[2017-10-10 01:14] VITALS: BP 102/70
--- NOTE | 2017-10-10 05:41 | ED ---
Jamshid Higginbotham Jennifer, scribed for Porfirio Easley on 10/09/17 at 1935 . Substance Abuse/Use - HPI Summary HPI Summary: The patient is a 46 year old male who requests a detox for alcohol. He reports that he has been drinking 12 beers every day for the past 10 years. He has had a detox before. - History Of Current Complaint Chief Complaint: EDDetoxRequest Stated Complaint: ETOH Time Seen by Provider: 10/09/17 19:18 Hx Obtained From: Patient Onset/Duration of Drug/ETOH Abuse: Years - 10 years Ingestion History: Type/Name Of Drug - Beer, Amount Ingested - 12 Beers Overdose Characteristics: Oral Timing Of Abuse: Daily Severity Initially: Moderate Severity Currently: Moderate Aggravating Factor(s): Nothing Alleviating Factor(s): Nothing - Allergies/Home Medications Allergies/Adverse Reactions: Allergies Allergy/AdvReac Type Severity Reaction Status Date / Time No Known Allergies Allergy Verified 05/25/16 08:27 PMH/Surg Hx/FS Hx/Imm Hx Endocrine/Hematology History: Denies: Hx Anticoagulant Therapy Respiratory History: Reports: Hx Asthma - YRS AGO, Other Respiratory Problems/ Disorders - Emphysema Musculoskeletal History: Reports: Hx Back Problems Sensory History: Reports: Hx Contacts or Glasses Opthamlomology History: Reports: Hx Contacts or Glasses - Immunization History Date of Tetanus Vaccine: unknown Date of Influenza Vaccine: no Infectious Disease History: No Infectious Disease History: Denies: Traveled Outside the [place] in Last 30 Days - Family History Known Family History: Positive: Cardiac Disease - Social History Alcohol Use: Daily Hx Substance Use: No Substance Use Type: Reports: None Smoking Status (MU): Heavy Every Day Tobacco Smoker Type: Cigarettes Amount Used/How Often: 1 pack/day Length of Time of Smoking/Using Tobacco: 30 years Have You Smoked in the Last Year: Yes Review of Systems Negative: Chest Pain Positive: Other - Intoxicated All Other Systems Reviewed And Are Negative: Yes Physical Exam - Summary Physical Exam Summary: Appearance: Well appearing, no pain distress Skin: warm, dry, reflects adequate perfusion Head/face: normal Eyes: EOMI, EHRBERTH ENT: normal Neck: supple, non-tender Respiratory: CTA, breath sounds present Cardiovascular: RRR, pulses symmetrical Abdomen: non-tender, soft Bowel: present Musculoskeletal: normal, strength/ROM intact Neuro: normal, sensory motor intact, A&Ox3 Triage Information Reviewed: Yes Vital Signs On Initial Exam: Initial Vitals BP 118/88 10/09/17 18:36 Vital Signs Reviewed: Yes Diagnostics - Vital Signs Vital Signs Temp Pulse Resp BP Pulse Ox 10/09/17 19:00 106/75 10/09/17 18:53 90 98 10/09/17 18:38 98.1 F 89 16 118/88 98 10/09/17 18:36 118/88 - Laboratory Result Diagrams: 10/09/17 19:42 10/09/17 19:42 Lab Statement: Any lab studies that have been ordered have been reviewed, and results considered in the medical decision making process. Course/Dx - Course Assessment/Plan: The patient is a 46 year old male who requests a detox for alcohol. He reports that he has been drinking 12 beers every day for the past 10 years. The patient is diagnosed with alcohol abuse. He is now clinically stable, gait stable, and walking straight. The patient is medically stable and discharged. - Diagnoses Provider Diagnoses: Alcohol abuse Discharge - Discharge Plan Condition: Stable Disposition: HOME Patient Education Materials: Abuse of Alcohol (ED) Referrals: Kiley Bermudez MD [Primary Care Provider] - 3 Days Additional Instructions: Follow up with your primary care physician in three days. Return to the emergency department for any new or worsening symptoms. The documentation as recorded by the Jamshid landers Jennifer accurately reflects the service I personally performed and the decisions made by , Porfirio Easley.
== END 2017-10-10 01:13 | disposition home or self-care (01) ==
LOC: ED 18:29
DX: F10.10 Alcohol abuse, uncomplicated (principal); F17.210 Nicotine dependence, cigarettes, uncomplicated
CPT/HCPCS: 36415; 80053; 80307; 80320; 85025; 99282; G0480

== ENCOUNTER 2018-01-03 20:47 | Emergency (ER) | payer OTHER ==
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
[2018-01-03] MEDS ORDERED: Tetan/Diph/Pertus SYR(Tdap)* 0.5 ML SYR(BOOSTRIX) use SYR IM ONE (23:32)
[2018-01-03] MEDS ORDERED: HYDROcodone/ACETAMIN 5-325 MG* 1 TAB PO ONE (23:32)
[2018-01-03] MEDS ORDERED: Naproxen TAB* 250 MG PO ONE (23:32)
[2018-01-03] MEDS ORDERED: Bacitracin OINTMENT* 0.5% 0.5 oz TUBE TOPICAL ONE (23:32)
[2018-01-04 01:17] VITALS: BP 119/74
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
--- NOTE | 2018-01-04 07:57 | RAD ---
Indication: Head injury, intoxicated. CT of the brain was performed without IV contrast. Ventricular structures are midline no midline shift is noted. The extraction spaces are unremarkable. There is no evidence of mass or hemorrhage. No other high or low density lesions are identified. Mastoid air cells and paranasal sinuses are otherwise unremarkable. IMPRESSION: No intracranial mass or hemorrhage is noted.
== END 2018-01-04 01:20 | disposition home or self-care (01) ==
LOC: ED 20:47
DX: S09.90XA Unspecified injury of head, initial encounter (principal); Y09 Assault by unspecified means; Y92.9 Unspecified place or not applicable; R07.81 Pleurodynia; H92.01 Otalgia, right ear; R51 Headache; F17.210 Nicotine dependence, cigarettes, uncomplicated; R07.89 Other chest pain
CPT/HCPCS: 70450; 90715; 99283; A9270-GY

== ENCOUNTER 2018-11-07 20:47 | Emergency (ER) | payer OTHER ==
--- NOTE | 2018-11-07 20:51 | UC ---
Cardiac HPI - HPI Summary HPI Summary: 47 yo male presents with sharp chest pain, SOB, and headache for the last 6 hours. He tells me that his pain began spontaneously and has not gotten any better or worse. He reports having a dry cough for the last 2 days, but no SOB. He is a heavy daily smoker. He does not take any medications. Has not seen a primary doctor in 6+ years. Has does have a history of pneumothorax, but states this feels nothing like that. He does not wear oxygen. Denies fever, abdominal pain, n/v. - History of Current Complaint Stated Complaint: CHEST PAIN Time Seen by Provider: 11/07/18 20:50 Hx Obtained From: Patient Initial Severity: Moderate Current Severity: Moderate Pain Intensity: 6 - Allergy/Home Medications Allergies/Adverse Reactions: Allergies Allergy/AdvReac Type Severity Reaction Status Date / Time No Known Allergies Allergy Verified 11/07/18 21:02 Home Medications: Home Medications Ibuprofen TAB* [Motrin TAB* 600 MG] 600 mg PO Q6H 11/07/18 [History Confirmed ] PMH/Surg Hx/FS Hx/Imm Hx - Additional Past Medical History Additional PMH: None Other History Of: Negative For: Anticoagulant Therapy - Surgical History Surgical History: None - Family History Known Family History: Positive: Cardiac Disease - Social History Lives: With Family Alcohol Use: Daily Substance Use Type: None Smoking Status (MU): Heavy Every Day Tobacco Smoker Type: Cigarettes Amount Used/How Often: 1 pack/day Length of Time of Smoking/Using Tobacco: 30 years Have You Smoked in the Last Year: Yes Household Exposure Type: Cigarettes - Immunization History Most Recent Influenza Vaccination: never Most Recent Tetanus Shot: within 10 years Most Recent Pneumonia Vaccination: never Review of Systems All Other Systems Reviewed And Are Negative: Yes Constitutional: Positive: Negative Skin: Positive: Negative Respiratory: Positive: Shortness Of Breath Cardiovascular: Positive: Chest Pain Gastrointestinal: Positive: Negative Genitourinary: Positive: Negative Neurovascular: Positive: Negative Neurological: Positive: Negative Psychological: Positive: Negative Physical Exam - Summary Physical Exam Summary: GENERAL: NAD. No pain distress. SKIN: No rashes, sores, lesions, or open wounds. NECK: Supple. Nontender. No lymphadenopathy. CHEST: Distant breath sounds throughout. No r/r/w. No accessory muscle use. Breathing comfortably and in no distress. CV: RRR. Without m/r/g. Pulses intact. Cap refill <2seconds ABDOMEN: Soft. NTTP. No distention or guarding. Bowel sounds present NEURO: Alert. PSYCH: Age appropriate behavior. Triage Information Reviewed: Yes Vital Signs: Vital Signs: Temp Pulse Resp BP Pulse Ox 98.5 F 95 19 110/73 98 11/07/18 20:55 11/07/18 20:55 11/07/18 20:55 11/07/18 20:55 11/07/18 20:55 Vital Signs Reviewed: Yes - Assessment/Plan Course Of Treatment: EKG NSR 88bpm with early repol as read by Dr. Garcia. He seems to be having some increased effort to breath, but his O2% is maintained well. He was placed on 2L NC for comfort, which improved his work of breathing. Given his family hx of cardiac disease and symptoms today without significant finding on exam - I advised pt to be further, and more appropriately, evaluated in the ED. He was agreeable to this and agreed to go by ambulance. Pt was given 324mg of ASA. [facility] ambulance was called and pt left in stable condition via EMS. - Clinical Impression Provider Diagnosis: Chest pain, SOB (shortness of breath) Discharge - Sign-Out/Discharge Documenting (check all that apply): Patient Departure All imaging exams completed and their final reports reviewed: No Studies - Discharge Plan Condition: Stable Disposition: TRANS HIGHER LVL OF CARE FAC Referrals: No Primary Care Phys,NOPCP [Primary Care Provider] - - Billing Disposition and Condition Condition: STABLE Disposition: Trans Higher Lvl of Care Fac
[2018-11-07 21:00] VITALS: BP 110/73
[2018-11-07] MEDS ORDERED: Aspirin TAB* 325 MG PO ONE (21:10)
== END 2018-11-07 21:25 | disposition short-term general hospital (02) ==
LOC: UCEAST 20:47
DX: R06.02 Shortness of breath (principal); R07.9 Chest pain, unspecified; R51 Headache; R05 Cough; F17.210 Nicotine dependence, cigarettes, uncomplicated
CPT/HCPCS: 99213; G0463

== ENCOUNTER 2018-11-07 21:45 | Emergency (ER) | payer OTHER ==
[2018-11-07] MEDS ORDERED: NS 0.9% 1000 ML** 1,000 ML IV ONE (22:16)
[2018-11-07] MEDS ORDERED: diPHENhydraMINE IV* 50 MG/ML 1 ml VIAL (BENADRYL) IV ONE (22:17)
[2018-11-07] MEDS ORDERED: Ketorolac INJ* 30 MG/ML 1 ML VIAL IV PUSH ONE (22:17)
[2018-11-07] MEDS ORDERED: Metoclopramide IV* 5 MG/ML 2 ML VIAL IV SLOW PU ONE (22:17)
--- NOTE | 2018-11-07 22:21 | ED ---
HPI Chest Pain - HPI Summary HPI Summary: Pt is a 47 y/o M presenting to the ED brought in by EMS for L-sided chest pain onset about 8 hours ago. He reports a headache onset about 6 hours ago, his head "feels like it wants to pop off." He denies any associated shortness of breath, myalgias or recent trauma. He drank two beers tonight with his brother. - History of Current Complaint Chief Complaint: EDChestPainROMI Time Seen by Provider: 11/07/18 21:53 Hx Obtained From: Patient Onset/Duration: Started Hours Ago, Still Present Timing: Constant, Lasting Hours Initial Severity: Moderate Current Severity: Moderate Pain Intensity: 6 Pain Scale Used: 0-10 Numeric Chest Pain Location: Left Anterior Chest Pain Radiates: No Character: Sharp/Stabbing Aggravating Factor(s): Nothing Alleviating Factor(s): Nothing Associated Signs and Symptoms: Positive: Chest Pain, Headaches. Negative: Shortness of Breath, Other: - myalgias - Allergy/Home Medications Allergies/Adverse Reactions: Allergies Allergy/AdvReac Type Severity Reaction Status Date / Time No Known Allergies Allergy Verified 11/07/18 21:47 PMH/Surg Hx/FS Hx/Imm Hx Previously Healthy: Yes Endocrine/Hematology History: Denies: Hx Anticoagulant Therapy, Hx Diabetes Respiratory History: Reports: Hx Asthma - YRS AGO, Other Respiratory Problems/ Disorders - Emphysema Musculoskeletal History: Reports: Hx Back Problems Sensory History: Reports: Hx Contacts or Glasses Opthamlomology History: Reports: Hx Contacts or Glasses - Immunization History Date of Tetanus Vaccine: unknown Date of Influenza Vaccine: no Infectious Disease History: No Infectious Disease History: Denies: Traveled Outside the [place] in Last 30 Days - Family History Known Family History: Positive: Cardiac Disease - Social History Alcohol Use: Daily Alcohol Amount: 3-5 Hx Substance Use: No Substance Use Type: Reports: None Hx Tobacco Use: Yes Smoking Status (MU): Heavy Every Day Tobacco Smoker Type: Cigarettes Amount Used/How Often: 1 pack/day Length of Time of Smoking/Using Tobacco: 30 years Have You Smoked in the Last Year: Yes Review of Systems Positive: Chest Pain Negative: Shortness Of Breath Negative: Myalgia Positive: Headache All Other Systems Reviewed And Are Negative: Yes Physical Exam - Summary Physical Exam Summary: VITAL SIGNS: Reviewed. GENERAL: Patient is a well-developed and nourished male who is lying comfortable in the stretcher. Patient is not in any acute respiratory distress. HEAD AND FACE: No signs of trauma. No ecchymosis, hematomas or skull depressions. No sinus tenderness. EYES: PERRLA, EOMI x 2, No injected conjunctiva, no nystagmus. EARS: Hearing grossly intact. Ear canals and tympanic membranes are within normal limits. MOUTH: Oropharynx within normal limits. NECK: Supple, trachea is midline, no adenopathy, no JVD, no carotid bruit, no c- spine tenderness, neck with full ROM. CHEST: Symmetric, no tenderness at palpation LUNGS: Clear to auscultation bilaterally. No wheezing or crackles. CVS: Regular rate and rhythm, S1 and S2 present, no murmurs or gallops appreciated. ABDOMEN: Soft, non-tender. No signs of distention. No rebound no guarding, and no masses palpated. Bowel sounds are normal. EXTREMITIES: FROM in all major joints, no edema, no cyanosis or clubbing. NEURO: Alert and oriented x 3. No acute neurological deficits. Speech is normal and follows commands. SKIN: Dry and warm Triage Information Reviewed: Yes Vital Signs On Initial Exam: Initial Vitals Temp Pulse Resp BP Pulse Ox 98.5 F 87 18 126/75 97 11/07/18 21:48 11/07/18 21:48 11/07/18 21:48 11/07/18 21:48 11/07/18 21:48 Vital Signs Reviewed: Yes Diagnostics - Vital Signs Vital Signs Temp Pulse Resp BP Pulse Ox 11/07/18 22:00 82 21 99 11/07/18 21:50 83 18 126/75 97 11/07/18 21:49 85 97 11/07/18 21:48 98.5 F 87 18 126/75 97 - Laboratory Result Diagrams: 11/07/18 22:23 11/07/18 22:23 Lab Statement: Any lab studies that have been ordered have been reviewed, and results considered in the medical decision making process. - Radiology CXR Radiology Interpretation Completed By: ED Physician Summary of Radiographic Findings: Hyperinflation. No acute process. Pending official radiology report. - EKG 2148 Cardiac Rate: NL - 84bpm EKG Rhythm: Sinus Rhythm ST Segment: Non-Specific Ectopy: None Chest Pain Course/Dx - Course Course Of Treatment: Pt is a 47 y/o M presenting to the ED brought in by EMS for L-sided chest pain. He also reports headache. He denies any shortness of breath, or associated myalgias. His EKG shows NSR at 84bpm. The pt's troponin I was 0.00. His serum alcohol is 265. CXR shows hyperinflation, no acute process otherwise. The pt will be discharged with dx including atypical chest pain and headache, and he is agreeable with this plan. - Diagnoses Provider Diagnoses: Atypical chest pain, Headache Discharge - Sign-Out/Discharge Documenting (check all that apply): Patient Departure Patient Received Moderate/Deep Sedation with Procedure: No - Discharge Plan Condition: Stable Disposition: HOME Referrals: Care [facility] [Outside] Additional Instructions: Please follow up with your primary care provider within the next 2-3 days. Return to the emergency department with any new or worsening symptoms. - Attestation Statements Document Initiated by Scribe: Yes Documenting Scribe: Erika Reina Provider For Whom Mellissa is Documenting (Include Credential): Gabriel Denney MD. Scribe Attestation: Erika Higginbotham, scribed for Gabriel Denney MD. on 11/08/18 at 0130. Status of Scribe Document: Ready
[2018-11-07 22:29] LABS: ABS Basophils 0 10^3/ul (0-0.2); ABS Eosinophils 0.1 10^3/ul (0-0.6); ABS Lymphocytes 1.2 10^3/ul (1.0-4.8); ABS Monocytes 0.7 10^3/ul (0-0.8); ABS Nucleated RBC 0 10^3/ul; Hematocrit 38 % (36-46); Hemoglobin 13.2 g/dL (14.0-18.0); Lymphocyte % 24.1 %; Mean Corpuscular HGB Conc 35 g/dL (31-36); Mean Corpuscular Hemoglobin 33 pg (27-31); Mean Corpuscular Volume 93 fL (80-94); Mean Platelet Volume 8.2 fL (7.4-10.4); Nucleated Red Blood Cells % 0.1; Platelet Count 195 10^3/uL (150-450); Red Blood Count 4.07 10^6 /uL (4.18-5.48); Red Cell Distribution Width 14 % (10.5-15)
[2018-11-07 22:38] LABS: Activated Partial Thrombo Time 31.3 seconds (26.0-36.3); INR 0.86 (0.77-1.02)
[2018-11-07 22:47] LABS: Albumin 3.9 g/dL (3.2-5.2); Albumin/Globulin Ratio 1.8 (1-3); BUN/Creatinine Ratio 13.4 (8-20); Calcium 8.5 mg/dL (8.6-10.3); EGFR African American 121.3 (>60); EGFR Non-African American 100.3 (>60); Globulin 2.2 g/dL (2-4); Magnesium 1.9 mg/dL (1.9-2.7); Potassium 3.5 mmol/L (3.5-5.0); Total Bilirubin 0.3 mg/dL (0.2-1.0); Total Protein 6.1 g/dL (6.4-8.9)
[2018-11-08 01:45] VITALS: BP 106/82
== END 2018-11-08 01:43 | disposition home or self-care (01) ==
LOC: ED 21:45
DX: R07.89 Other chest pain (principal); R51 Headache; J44.9 Chronic obstructive pulmonary disease, unspecified; Z82.49 Family history of ischemic heart disease and other diseases of the circulatory system; F17.210 Nicotine dependence, cigarettes, uncomplicated
CPT/HCPCS: 36415; 71045; 80053; 80320; 83735; 84484; 85025; 85610; 85730; 93005; 96361; 96374; 96375; 99284; G0480; J1200; J1885; J2765

== ENCOUNTER 2019-01-13 19:13 | Emergency (ER) | payer OTHER ==
--- NOTE | 2019-01-13 19:40 | ED ---
HPI Chest Pain - HPI Summary HPI Summary: The patient is a 48 y/o M presenting to [facility] arriving by ambulance with a chief complaint of sudden onset sharp mid-sternal CP starting this morning. He reports that the intermittent pain radiates into his neck, and he has additionally been having symptoms of nausea and vomiting with one episode of hematemesis. The pain is aggravated by recumbent position and deep breathing, and it is alleviated by an upright positing. He had ASA in the ambulance to mild relief as the pain is still present and rated 4/10 in severity. He denies SOB. He states that he does not have CP or SOB normally with ambulatino despite hx of emphysema and asthma from current everyday heaving smoking. He was also in the ED in October 2018 for similar symptoms, but he states that the pain is different now. He also reports previous atelectasis with re-inflation in May 2016, which he notes was a similar pain to his current status. Some EtOH with most recent drink last night. No substance use. FHx of cardiac disease in father. - History of Current Complaint Chief Complaint: EDChestPainROMI Time Seen by Provider: 01/13/19 19:27 Hx Obtained From: Patient Onset/Duration: Started Hours Ago, Still Present Timing: Intermittent, Lasting Minutes Initial Severity: Mild Current Severity: Moderate Pain Intensity: 4 Pain Scale Used: 0-10 Numeric Chest Pain Location: Mid Sternal Chest Pain Radiates: Yes Chest Pain Radiates To:: Neck Character: Sharp/Stabbing Aggravating Factor(s): Deep Breaths, Recumbent Position Alleviating Factor(s): Upright Position - sitting or standing Associated Signs and Symptoms: Positive: Chest Pain - radiates to neck, Nausea, Vomiting - with one episode of hematemesis. Negative: Shortness of Breath - Allergy/Home Medications Allergies/Adverse Reactions: Allergies Allergy/AdvReac Type Severity Reaction Status Date / Time pseudoephedrine Allergy Unknown Verified 01/13/19 19:22 [From Danita] Reaction Details PMH/Surg Hx/FS Hx/Imm Hx Endocrine/Hematology History: Denies: Hx Anticoagulant Therapy, Hx Diabetes Cardiovascular History: Denies: Hx Hypertension Respiratory History: Reports: Hx Asthma - YRS AGO, Other Respiratory Problems/ Disorders - Emphysema Musculoskeletal History: Reports: Hx Back Problems Sensory History: Reports: Hx Contacts or Glasses Opthamlomology History: Reports: Hx Contacts or Glasses - Surgical History Surgery Procedure, Year, and Place: none - Immunization History Date of Tetanus Vaccine: unknown Date of Influenza Vaccine: no Infectious Disease History: No Infectious Disease History: Denies: Traveled Outside the [place] in Last 30 Days - Family History Known Family History: Positive: Cardiac Disease - father - Social History Alcohol Use: Occasionally Alcohol Amount: drank yesterday Hx Substance Use: No Substance Use Type: Reports: None Hx Tobacco Use: Yes Smoking Status (MU): Heavy Every Day Tobacco Smoker Type: Cigarettes Amount Used/How Often: 1 pack/day Length of Time of Smoking/Using Tobacco: 30 years Have You Smoked in the Last Year: Yes Review of Systems Positive: Chest Pain - mid-sternal, sharp Negative: Shortness Of Breath Positive: Vomiting - with hematemesis, Nausea Positive: Other - CP radiates to neck All Other Systems Reviewed And Are Negative: Yes Physical Exam - Summary Physical Exam Summary: Appearance: Well appearing, no pain distress Skin: warm, dry, reflects adequate perfusion Head/face: normal Eyes: EOMI, HERBERTH ENT: normal Neck: supple, non-tender Respiratory: CTA, breath sounds present Cardiovascular: RRR, pulses symmetrical Abdomen: non-tender, soft Musculoskeletal: normal, strength/ROM intact Neuro: normal, sensory motor intact, A&Ox3 Triage Information Reviewed: Yes Vital Signs On Initial Exam: Initial Vitals Temp Pulse Resp BP Pulse Ox 99 F 91 18 129/83 98 01/13/19 19:17 01/13/19 19:17 01/13/19 19:17 01/13/19 19:17 01/13/19 19:17 Vital Signs Reviewed: Yes Diagnostics - Vital Signs Vital Signs Temp Pulse Resp BP Pulse Ox 01/13/19 19:17 99 F 91 18 129/83 98 - Laboratory Result Diagrams: 01/13/19 20:06 01/13/19 20:06 Lab Statement: Any lab studies that have been ordered have been reviewed, and results considered in the medical decision making process. - Radiology CXR Radiology Interpretation Completed By: Radiologist Summary of Radiographic Findings: No acute process. ED physician has reviewed this report. - EKG 1935 Cardiac Rate: NL - 88 BPM EKG Rhythm: Sinus Rhythm EKG Comparison: No Significant Change - Similar to EKG taken on 11/07/2018 Summary of EKG Findings: No ST elevations Re-Evaluation - Re-Evaluation First Eval Re-Evaluation Time: 03:00 Change: Improved Comment: He states that the GI cocktail has improved his symptoms. Chest Pain Course/Dx - Course Assessment/Plan: The patient is a 48 y/o M presenting to [facility] arriving by ambulance with a chief complaint of sudden onset of intermittent episodes sharp mid-sternal CP starting this morning. When present, the pain radiates into his neck, and he also has been having symptoms of nausea and vomiting but no SOB. Hx of lung atelectasis, emphysema, and asthma for current heavy everyday smoking. FHx of cardiac disease in father. Upon physical exam, the patient exhibits no acute abnormalities. In the ED course, the patient was administered Ns, Protonix, NTG, and GI cocktail. Blood work and toxicology report obtained. EKG reveals NSR. CXR reveals no acute process. I spoke with Dr. Davies, hospitalist, at 0130, and she states she will see the patient in the ED, but she isnt sure at this time if he is appropriate for admission. At 0345, Dr. Davies reports that she doesnt believe that the patients symptomology is cardiac related so it is safe for him to be discharged home. He is diagnosed with atypical chest pain. He will be discharged home with prescription for Omeprazole and Carafate. He will follow up with PCP in 2-3 days. He agrees with this plan and understands the need for return to the ED for any new or worsening symptoms. - Chest Pain Differential Diagnosis/HQI/PQRI: ACS, Chest Wall, Lower Respiratory Infection - Diagnoses Provider Diagnoses: Atypical chest pain - Provider Notifications Discussed Care Of Patient With: Michelle Davies - hospitalist Time Discussed With Above Provider: 01:30 Instructed by Provider To: Other - I consulted Dr. Davies concerning patient's case; she will come see the patient in the ED. At 0345, Dr. Davies doesn't believe that the patient is acceptable for admission because his symptoms are not cardiac-related. Discharge - Sign-Out/Discharge Documenting (check all that apply): Patient Departure - Patient will be discharged home. Patient Received Moderate/Deep Sedation with Procedure: No - Discharge Plan Condition: Stable Disposition: HOME Prescriptions: Omeprazole CAP (NF) [Prilosec CAP* 20 MG] 20 mg PO DAILY #30 cap.dr Sucralfate TAB* [Carafate*] 1 gm PO BID #60 tab Patient Education Materials: Chest Pain (DC) Referrals: [facility] [place] PHYSICIAN REFERRAL [Outside] - 3 Days Additional Instructions: Please take medications as prescribed. Follow up with your primary care provider in 2-3 days. RETURN TO THE EMERGENCY DEPARTMENT FOR ANY NEW OR WORSENING SYMPTOMS. - Billing Disposition and Condition Condition: STABLE Disposition: Home - Attestation Statements Document Initiated by Mellissa: Yes Documenting Scribe: Dori Nunez Provider For Whom Mellissa is Documenting (Include Credential): Dr. oPrfirio Easley MD Scribe Attestation: IDori scribed for Dr. Porfirio Easley MD on 01/14/19 at 0628. Scribe Documentation Reviewed: Yes Provider Attestation: The documentation as recorded by the Dori landers accurately reflects the service I personally performed and the decisions made by me, Dr. Porfirio Easley MD Status of Scribe Document: Viewed
[2019-01-13 20:23] LABS: ABS Lymphocytes 1.6 10^3/ul (1.0-4.8); ABS Monocytes 0.9 10^3/ul (0-0.8); ABS Neutrophils 5.7 10^3/ul (1.5-7.7); Eosinophil % 0.3 %; Hematocrit 46 % (42-52); Lymphocyte % 19.9 %; Mean Corpuscular HGB Conc 35 g/dL (31-36); Mean Corpuscular Hemoglobin 32 pg (27-31); Mean Corpuscular Volume 92 fL (80-94); Mean Platelet Volume 8.3 fL (7.4-10.4); Nucleated Red Blood Cells % 0.2; Platelet Count 241 10^3/uL (150-450); Red Blood Count 4.97 10^6 /uL (4.18-5.48); Red Cell Distribution Width 13 % (10.5-15); White Blood Count 8.3 10^3/uL (3.5-10.8)
[2019-01-13 20:47] LABS: Albumin 4.4 g/dL (3.2-5.2); Albumin/Globulin Ratio 1.7 (1-3); BUN/Creatinine Ratio 10.5 (8-20); Calcium 9.2 mg/dL (8.6-10.3); EGFR African American 114.4 (>60); EGFR Non-African American 94.5 (>60); Globulin 2.6 g/dL (2-4); Potassium 4.2 mmol/L (3.5-5.0); Total Bilirubin 0.5 mg/dL (0.2-1.0)
[2019-01-13] MEDS ORDERED: NS 0.9% 1000 ML** 2,000 ML IV ONE (20:52)
[2019-01-13] MEDS ORDERED: Nitro 2% OINT* (Nitroglycerin) 1 INCH/PAK PAK TOPICAL ONE (23:29)
[2019-01-14] MEDS ORDERED: Pantoprazole TAB * 40 MG TAB PO ONE (00:48)
[2019-01-14] MEDS ORDERED: Lidocaine 2% VISCOUS* 15 ML UDC PO ONE (01:52)
[2019-01-14] MEDS ORDERED: Al Hydrox/Mg Hydrox/Simet LIQ* 30 ML UDC PO ONE (01:52)
[2019-01-14 04:29] VITALS: BP 128/76
--- NOTE | 2019-01-14 11:29 | CONS ---
CC: EDIN Astorga * CONSULTATION REPORT: DATE OF CONSULT: 01/14/19 PRIMARY CARE PROVIDER: CARLOS Gunderson CHIEF COMPLAINT: Chest pain. HISTORY OF PRESENT ILLNESS: Mr. Sahni is a 48-year-old male with a history of COPD, who presented to the emergency room with complaints of chest pain that began on Wednesday afternoon. He states that the pain has been coming and going over the last 24 hours or so. He states the pain lasts 1 to 2 minutes a time. He describes the pain as a burning discomfort in the middle of his chest. He states that it was so severe that he vomited 3 times. With the 3rd time, he did notice a little bit of blood in the vomit. He thinks that the vomiting seemed to help his pain. He notes that there has been acidic taste in his mouth. Of note, the patient did admit the patient drinking alcohol on Wednesday evening; however, states that he does not drink on a daily basis. An alcohol level, however, was obtained in the emergency room and was elevated to 228. The patient did not mention that alcohol use to me. He also notes that coffee made his symptoms worse. He received a pill that he states helps. This pill was Protonix. He notes that this pain much different than before. He states that he takes occasional ibuprofen, but nothing in the last couple of weeks. PAST MEDICAL HISTORY: COPD. PAST SURGICAL HISTORY: None. MEDICATIONS: None. ALLERGIES: EXCEDRIN. FAMILY HISTORY: Mother at the age of 72 of a CVA. Father at the age of 62 of what sounds to be complications from a very large meningioma. He also had an MT in his 50s. SOCIAL HISTORY: The patient smoked approximately a pack per day for 30 years. He denies any alcohol use. He works at [employer] in the [employer]. He is . He has 3 children. He indicates that his brother, Krista would be his healthcare proxy. REVIEW OF SYSTEMS: A complete 11-system review of systems is obtained. Pertinent positives and negatives were as per HPI and otherwise negative except for the fact that he states the appetite has been somewhat poor recently and that he feels as if food gets stuck in his throat on occasion. PHYSICAL EXAM: Blood pressure 121/67, pulse 68, respirations 14, temp 98.9, O2 sat 95% on room air. General: The patient is a well-developed, middle-aged thin male, lying in the stretcher in no acute distress. HEENT: Pupils are equal, round. Extraocular muscles are intact. Oropharynx is moist. There is no submandibular cervical or supraclavicular adenopathy. Thyroid is not enlarged. No thyroid nodules noted. Cardiac: Normal S1, S2, regular rate and rhythm. I did not appreciate any murmurs. There is no lower extremity edema. Pulmonary: Lungs are clear to auscultation bilaterally. Abdomen: Bowel sounds present. Abdomen is soft and nontender, nondistended. Musculoskeletal: There is no cyanosis or clubbing of the digits. There is full active range of motion of all 4 extremities. Skin is warm and dry. There are no rashes. Neuro: Cranial nerves II through XII are grossly intact. Sensation is intact to light touch throughout. Strength is normal throughout. Psych: The patient is alert. He is oriented x3. Affect is appropriate. DIAGNOSTIC STUDIES/LAB DATA: WBC 8.3, hemoglobin 16.0, hematocrit 46, and platelets 241. Sodium 130, potassium 4.2, chloride 91, CO2 of 27, BUN 9, creatinine 0.86. Glucose 99, lactic acid 3.2. Calcium 9.2, bilirubin 0.5, AST 29, ALT 18, alk phos 77, troponin 0 x2, albumin 4.4, lipase 21, serum alcohol 228. EKG reveals normal sinus rhythm with ST elevation in the anterior lead, so this is unchanged from prior EKG and likely represents early repolarization. Chest x-ray to my interpretation reveals hyperinflated lungs without any clear focal infiltrates. ASSESSMENT AND PLAN: Mr. Sahni is a 48-year-old male with a history of tobacco abuse and coronary artery disease in his father, who presents to the emergency room with complaints of burning chest pain. 1. Chest pain. The patient clearly describes this as a burning sensation in his chest with an acidic taste in his mouth. He notes that Protonix and a GI cocktail helped with his discomfort. My suspicion is that the patient drinks more frequently than what he admitted to. It is likely that he has underlying esophagitis/gastritis. The patient also vomited, which likely is contributing to the burning pain in his chest. At this point, I have recommended the patient to be started on Prilosec daily and Carafate 1 g p.o. q.a.c. and h.s. The patient likely would benefit from referral to Gastroenterology given the fact that he states that food gets stuck on occasion. He may need EGD to evaluate for esophagitis or Gray's esophagus. 2. Hematemesis. The patient states that there was 1 episode of vomiting where there was a scant amount of blood in the vomit. I suspect that this is related to Shazia-Zheng tear. His hemoglobin was stable. He is no longer vomiting. 3. Lactic acidosis. It is unclear why his lactic acid level was elevated. There are no signs of infection. He does not appear to be dehydrated. No further workup for this has been undertaken at this point. 4. Chronic obstructive pulmonary disease. The patient will continue to manage this as an outpatient. 5. The patient is stable for discharge to home this evening from the emergency room with followup with his PCP, EDIN Astorga. TIME SPENT: Forty five minutes was spent on the consultation of this patient. [id number]/CPS #: [id number] IAN
== END 2019-01-14 04:28 | disposition home or self-care (01) ==
LOC: ED 19:13
DX: R07.89 Other chest pain (principal); K92.0 Hematemesis; E87.2 Acidosis; J44.9 Chronic obstructive pulmonary disease, unspecified; Z88.8 Allergy status to other drugs, medicaments and biological substances; Z82.49 Family history of ischemic heart disease and other diseases of the circulatory system; F17.210 Nicotine dependence, cigarettes, uncomplicated
CPT/HCPCS: 36415; 71045; 80053; 80320; 83605; 83690; 84484; 85025; 93005; 96360; 99285; A9270-GY; G0480

== ENCOUNTER 2019-01-23 06:51 | Emergency (ER) | payer OTHER ==
[2019-01-23] MEDS ORDERED: NS 0.9% 1000 ML** 1,000 ML IV ONE ×2 (07:05→08:03)
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
[2019-01-23 07:40] LABS: ABS Basophils 0.1 10^3/ul (0-0.2); ABS Lymphocytes 1.3 10^3/ul (1.0-4.8); ABS Monocytes 0.6 10^3/ul (0-0.8); ABS Neutrophils 5.9 10^3/ul (1.5-7.7); Eosinophil % 0.3 %; Hematocrit 44 % (42-52); Hemoglobin 15.2 g/dL (14.0-18.0); Lymphocyte % 16.1 %; Mean Corpuscular HGB Conc 35 g/dL (31-36); Mean Corpuscular Hemoglobin 32 pg (27-31); Mean Corpuscular Volume 93 fL (80-94); Mean Platelet Volume 8.2 fL (7.4-10.4); Nucleated Red Blood Cells % 0.1; Platelet Count 222 10^3/uL (150-450); Red Blood Count 4.71 10^6 /uL (4.18-5.48); Red Cell Distribution Width 13 % (10-15); White Blood Count 7.9 10^3/uL (3.5-10.8)
[2019-01-23 07:56] LABS: Albumin 4.2 g/dL (3.2-5.2); Albumin/Globulin Ratio 1.6 (1-3); BUN/Creatinine Ratio 8.5 (8-20); Calcium 9.2 mg/dL (8.6-10.3); EGFR African American 120.8 (>60); EGFR Non-African American 99.9 (>60); Globulin 2.6 g/dL (2-4); Potassium 3.7 mmol/L (3.5-5.0); Total Bilirubin 0.3 mg/dL (0.2-1.0); Total Protein 6.8 g/dL (6.4-8.9)
--- OUTSIDE RECORDS SUMMARY | 2019-01-23 08:25 | XMS REPORT | Continuity of Care Document ---
:1970 External Reference #:[id number] Author Name Zeynep Zimmerman Care Team Providers Name Role Phone Mario Graf III, MD Primary Care Physician Unavailable Payers Date Identification Numbers Payment Provider Subscriber Policy Number: [id number] Princecee Sahni PayID: [id number] [address] [place] [address] Policy Number: [id number] Medicaid Casey Sahni Group Name: 1 1 [address] PayID: [id number] [place] [address] Family History Date Family Member(s) Observation Comments Father due to Heart Disease () Father due to Stroke () Mother due to Stroke () Social History Type Date Description Comments Sex Unknown Tobacco Use Start: Unknown Heavy tobacco smoker (more than 10 cigarettes/day) Smoking Status Reviewed: 01/18/19 Heavy tobacco smoker (more than 10 cigarettes/day) Allergies, Adverse Reactions, Alerts Active Allergies Reaction Severity Comments Date Ephedrine 01/18/2019 Inactive Allergies NKDA 05/28/2016 Medications Active Medications SIG Qnty Indications Ordering Provider Date Cefadroxil take one tab 14caps L03.113 Kiarra Lynn, 01/18/2019 500mg twice a day DO Capsules Trazodone HCL 1 by mouth at 30tabs G47.00 Kiarra Lynn, 01/18/2019 50mg bedtime DO Tablets Omeprazole 1 by mouth every Unknown 20mg day Capsules DR Sucralfate 1 by mouth two Unknown 1gm Tablets times a day History Medications No Active Medications Unknown 05/28/2016 - 01/18/2019 Vital Signs Date Vital Result Comment 01/18/2019 1:28pm Weight 124.00 lb Heart Rate 78 /min BP Systolic 126 mmHg BP Diastolic 80 mmHg Body Temperature 97.8 F O2 % BldC Oximetry 98 % Encounters Type Date Location Provider Dx Diagnosis Office Visit 05/25/2016 Surgical Alan S. J93.11 Primary spontaneous 7:00a [facility] MD Jace pneumothorax J44.9 Chronic obstructive pulmonary disease, unspecified Plan of Treatment 01/18/2019 - Kiarra Lynn DOR13.13 Dysphagia, pharyngeal phaseReferral: Avi Washington MD, GastroenterologyFollow up:come back in 3 monthsRecommendations:I am referring you to a yardage caller for an upper ynivbtbdbM11.113 Cellulitis of right upper limbNew Medication:Cefadroxil 500 mg - take one tab twice a dayK21.0 Gastro-esophageal reflux disease with esophagitisRecommendations:continue the omeprazole x 1 month and then stop If the pain comes back after that, we need to do more eewcbetR70.9 Chronic obstructive pulmonary disease, unspecifiedNew Orders:PFTW/Spirometry Vol Pre/ Post Bronchdilat Dlco Complete, Ordered: 01/18/19Z72.0 Tobacco useRecommendations:call [phone] Insomnia, unspecifiedNew Medication: Trazodone HCL 50 mg - 1 by mouth at bedtime
[2019-01-23 08:58] LABS: Urine Appearance Clear; Urine Bacteria Absent (Absent); Urine Bilirubin Negative (Negative); Urine Blood 2+ (Negative); Urine Color Straw; Urine Glucose Negative (Negative); Urine Ketones Negative (Negative); Urine Nitrite Negative (Negative); Urine Protein Negative (Negative); Urine Red Blood Cell Trace(0-2/hpf) (Absent); Urine Specific Gravity 1.003 (1.010-1.030); Urine Urobilinogen Negative (Negative); Urine White Blood Cell Absent (Absent)
[2019-01-23] MEDS ORDERED: Tetan/Diph/Pertus SYR(Tdap)* 0.5 ML SYR(BOOSTRIX) use SYR IM ONE (12:02)
[2019-01-23] MEDS ORDERED: Acetaminophen TAB* 325 MG PO ONE (12:17)
[2019-01-23 15:29] VITALS: BP 109/71
== END 2019-01-23 15:28 | disposition home or self-care (01) ==
LOC: ED 06:51
DX: S01.01XA Laceration without foreign body of scalp, initial encounter (principal); S00.03XA Contusion of scalp, initial encounter; T68.XXXA Hypothermia, initial encounter; S09.90XA Unspecified injury of head, initial encounter; Y92.9 Unspecified place or not applicable; F17.210 Nicotine dependence, cigarettes, uncomplicated; F10.129 Alcohol abuse with intoxication, unspecified
CPT/HCPCS: 36415; 70450; 71045; 72125; 72170; 80053; 80320; 81003; 81015; 82550; 83605; 83735; 84484; 85025; 90715; 93005; 96360; 96361; 99282; A9270-GY; G0480